=== PATIENT | female | born 1985 ===

== ENCOUNTER → 2025-05-25 10:31 | Outpatient (REF) | payer OTHER, SELFPAY | LOC: PNTC 10:31 | PROVIDERS: ATTENDING PHYSICIAN Obstetrics & Gynecology | DX: O09.523 Supervision of elderly multigravida, third trimester (principal) | CPT/HCPCS: 59025 ==

== ENCOUNTER → 2025-06-01 09:47 | Outpatient (REF) | payer OTHER, SELFPAY | LOC: PNTC 09:47 | PROVIDERS: ATTENDING PHYSICIAN Obstetrics & Gynecology | DX: O09.523 Supervision of elderly multigravida, third trimester (principal) | CPT/HCPCS: 59025 ==

== ENCOUNTER → 2025-06-08 09:38 | Outpatient (REF) | payer OTHER, SELFPAY | LOC: PNTC 09:38 | PROVIDERS: ATTENDING PHYSICIAN Obstetrics & Gynecology | DX: O09.523 Supervision of elderly multigravida, third trimester (principal) | CPT/HCPCS: 59025 ==

== ENCOUNTER 2025-06-13 17:07 | Inpatient (IN) | payer OTHER, SELFPAY ==
[2025-06-13 17:17] VITALS: BP 149/79; BMI 29.3
[2025-06-13 18:58] LABS: Hematocrit 37.3 % (37.0-47.0); Hemoglobin 12.1 g/dL (12.0-16.0); Mean Corp Hgb Conc. 32.4 g/dL (33.0-37.0); Mean Corpuscular Volume 87.1 fL (81.0-99.0); Platelet Count 196 10^3/uL (130-400); Red Cell Dist. Width 15.8 % (11.5-14.5)
[2025-06-13] MEDS: TYLENOL 975 MG PO (19:12)
[2025-06-13] MEDS: BICITRA 30 ML PO (19:12)
[2025-06-13] MEDS: ANCEF 10 IV (19:13)
[2025-06-13] MEDS: ZITHROMAX INFUSION 250 IV (19:13)
[2025-06-14] MEDS: TORADOL 15 MG IV ×4 (01:59→20:14)
[2025-06-14 06:20] LABS: Hematocrit 32.7 % (37.0-47.0); Hemoglobin 10.6 g/dL (12.0-16.0); Mean Corp Hgb Conc. 32.4 g/dL (33.0-37.0); Mean Corpuscular Volume 87.2 fL (81.0-99.0); Platelet Count 196 10^3/uL (130-400); Red Cell Dist. Width 15.3 % (11.5-14.5)
[2025-06-14] MEDS: PRENATAL PLUS 1 TABLET PO (08:09)
[2025-06-14] MEDS: COLACE 100 MG PO ×2 (08:10→20:14)
[2025-06-14] MEDS: MYLICON 80 MG PO (20:14)
[2025-06-15] MEDS: TYLENOL 650 MG PO ×2 (02:22→08:13)
[2025-06-15] MEDS: MOTRIN 600 MG PO ×2 (02:23→08:14)
[2025-06-15] MEDS: PRENATAL PLUS 1 TABLET PO (07:49)
[2025-06-15] MEDS: COLACE 100 MG PO (07:49)
[2025-06-16 15:51] LABS: Syphilis/T. pallidum Ab Reflex Negative (Negative)
== END 2025-06-15 13:55 | disposition home or self-care (01) | DRG 788 ==
LOC: LDRP 17:07
PROVIDERS: ADMITTING PHYSICIAN Obstetrics & Gynecology
PROC: 10D00Z1 Extraction of Products of Conception, Low, Open Approach (ICD-10-PCS; 2025-06-13)
DX: O34.211 Maternal care for low transverse scar from previous cesarean delivery (principal); Z3A.39 39 weeks gestation of pregnancy; Z37.0 Single live birth; O34.13 Maternal care for benign tumor of corpus uteri, third trimester; D25.9 Leiomyoma of uterus, unspecified; O69.81X0 Labor and delivery complicated by cord around neck, without compression, not applicable or unspecified
CPT/HCPCS: 36415; 85027; 86780; 86850; 86900; 86901